=== PATIENT | male | born 1965 | race Asian ===

== ENCOUNTER 2018-01-12 15:50 | Inpatient (IN) | payer OTHER ==
[~2018-01-12] VITALS: Ht 170.2 cm; Wt 81.4 kg
[2018-01-12 15:57] VITALS: Ht 170.2 cm; Wt 81.4 kg
[2018-01-12 16:36] LABS: BASOPHIL % 0.4 % (0-2); PLATELET COUNT 211 x10^3mcL (130-400)
[2018-01-12 16:37] LABS: CALCIUM 9.1 mg/dL (8.5-10.1); CARBON DIOXIDE 23.9 mmol/L (21-32); CREATININE SERUM 1.5 mg/dL (0.7-1.3)
[2018-01-12 16:38] LABS: RED CELL DISTRIBUTION WIDTH 14.6 % (11.5-14.5)
[2018-01-12 16:50] LABS: UA SPECIFIC GRAVITY >=1.030 (1.005-1.035); microscopic required? YES; urine erythrocyte NEGATIVE (NEGATIVE)
[2018-01-12 16:54] LABS: ALBUMIN 3.5 g/dL (3.4-5.0); BILIRUBIN TOTAL 1.1 mg/dL (0.20-1.00); FREE T4 1.03 ng/dL (0.76-1.46); TOTAL PROTEIN, SERUM 7.8 g/dL (6.4-8.2)
[2018-01-12 17:04] LABS: AMPHETAMINE QUAL UR NONE DETECTED (See below)
[2018-01-12] MEDS ORDERED: GOOD SENSE ASP325 MG PO (17:32)
[2018-01-12] MEDS ORDERED: COREG12.5 MG PO (17:32)
[2018-01-12] MEDS ORDERED: LIPITOR40 MG PO (17:33)
[2018-01-12] MEDS ORDERED: NITROSTAT0.4 MG PO (17:34)
[2018-01-12] MEDS ORDERED: PLA75 PO (17:34)
[2018-01-12] MEDS ORDERED: ZESTRIL10 MG PO (17:35)
[2018-01-12 18:20] VITALS: BP 124/74
[2018-01-12 18:32] LABS: CHOLESTEROL/HDL RATIO 3.7
[2018-01-12 19:27] VITALS: BP 118/78
[2018-01-13] VITALS (7 sets, daily range): BP systolic 115–172; BP diastolic 75–110
[2018-01-13 05:53] LABS: PLATELET COUNT 210 x10^3mcL (130-400)
[2018-01-13 06:03] LABS: CALCIUM 8.3 mg/dL (8.5-10.1); CARBON DIOXIDE 25.2 mmol/L (21-32); CREATININE SERUM 1.4 mg/dL (0.7-1.3); POTASSIUM SERUM 4.3 mmol/L (3.5-5.1)
[2018-01-13 06:57] LABS: BASOPHIL % 0 % (0-2); RED CELL DISTRIBUTION WIDTH 14.9 % (11.5-14.5)
[2018-01-14 05:31] VITALS: BP 150/91
[2018-01-14 06:36] LABS: PLATELET COUNT 211 x10^3mcL (130-400); RED CELL DISTRIBUTION WIDTH 14.3 % (11.5-14.5)
[2018-01-14 06:51] LABS: CALCIUM 8.3 mg/dL (8.5-10.1); CARBON DIOXIDE 23.1 mmol/L (21-32); CHLORIDE SERUM 105 mmol/L (98-107); CREATININE SERUM 1.3 mg/dL (0.7-1.3); GFR1 > 60 mL/min; GLUCOSE SERUM 171 mg/dL (74-106); POTASSIUM SERUM 4.3 mmol/L (3.5-5.1); SODIUM SERUM 139 mmol/L (136-145)
[2018-01-14 07:07] LABS: BASOPHIL % 0 % (0-2)
[2018-01-14 10:19] VITALS: BP 140/87
[2018-01-14 17:16] VITALS: BP 118/79
[2018-01-14 19:30] VITALS: BP 110/71
[2018-01-15 06:09] VITALS: BP 139/95
[2018-01-15 06:27] LABS: PLATELET COUNT 217 x10^3mcL (130-400); RED CELL DISTRIBUTION WIDTH 14.4 % (11.5-14.5)
[2018-01-15 06:46] LABS: CALCIUM 8.2 mg/dL (8.5-10.1); CHLORIDE SERUM 103 mmol/L (98-107); CREATININE SERUM 1.2 mg/dL (0.7-1.3); GFR1 > 60 mL/min; GLUCOSE SERUM 160 mg/dL (74-106); POTASSIUM SERUM 4.1 mmol/L (3.5-5.1); SODIUM SERUM 139 mmol/L (136-145)
[2018-01-15 08:30] VITALS: BP 139/95
[2018-01-15 09:42] VITALS: BP 114/80
[2018-01-15 11:10] LABS: BAND NEUTROPHIL 1 % (0-10); BASOPHIL 0 % (0-2); MONOCYTE 5 % (0-7); SEGMENTED NEUTROPHILS 93 % (37-75)
[2018-01-15 11:11] LABS: PLATELET MORPHOLOGY PLATELETS NORMAL; rbc morphology (normal/abnorm) ABNORMAL (NORMAL)
[2018-01-15 12:55] VITALS: BP 107/79
[2018-01-15 13:17] VITALS: BP 121/79
[2018-01-15 13:45] VITALS: BP 121/79
== END 2018-01-15 18:30 | disposition other institution (70) | DRG 177 ==
LOC: ED 15:50 → DU 17:28
PROVIDERS: Emergency Medicine; Internal Medicine
DX: J69.0 Pneumonitis due to inhalation of food and vomit (principal); J96.01 Acute respiratory failure with hypoxia; I50.43 Acute on chronic combined systolic (congestive) and diastolic (congestive) heart failure; J44.1 Chronic obstructive pulmonary disease with (acute) exacerbation; E87.2 Acidosis; J45.901 Unspecified asthma with (acute) exacerbation; I13.0 Hypertensive heart and chronic kidney disease with heart failure and stage 1 through stage 4 chronic kidney disease, or unspecified chronic kidney disease; I48.91 Unspecified atrial fibrillation; Z95.5 Presence of coronary angioplasty implant and graft; I25.10 Atherosclerotic heart disease of native coronary artery without angina pectoris; Z68.28 Body mass index [BMI] 28.0-28.9, adult; N18.9 Chronic kidney disease, unspecified; I25.2 Old myocardial infarction
CPT/HCPCS: 83880; 84439; 87804; J1956; J2920; J2930; J3490; J7040; J7620; Q0092